=== PATIENT | male | born 1990 | race African-American/Black ===

== ENCOUNTER 2016-02-23 12:15 | Emergency (ER) | payer MEDICAID ==
--- NOTE | 2016-02-23 12:29 | ER Document Report ---
ED Medical Screen (RME) - General Stated Complaint: BODY PAIN Notes: Body pain for approximately 1 year. struck left knee yesterday. Ambulatory no limp steady gait. I greeted and performed a rapid initial assessment of this patient. Comprehensive ED assessment and evaluation of the patient, analysis of test results and completion of the medical decision making process will be conducted by additional ED providers.
[2016-02-23] MEDS ORDERED: KETOROLAC TROMETHAMINE 60 MG/2 ML SDV IM ONE (13:06)
--- NOTE | 2016-02-23 13:12 | ER Document Report ---
ED General Pain - General Chief Complaint: Pain All Over Stated Complaint: BODY PAIN Time seen by provider: 13:06 TRAVEL OUTSIDE OF THE [place] IN LAST 30 DAYS: No - HPI Patient complains to provider of: pain in knees Onset: Other - pt. states he fell on his knees 2 days ago and has had some pain in them since. He has been walking on them since this time. - Related Data Allergies/Adverse Reactions: No Known Allergies Allergy (Unverified 02/23/16 12:29) Past Medical History - General Information source: Patient - Social History Smoking Status: Never Smoker Cigarette use (# per day): No Chew tobacco use (# tins/day): No Smoking Education Provided: No Frequency of alcohol use: None Drug Abuse: None Family History: None Patient has suicidal ideation: No Patient has homicidal ideation: No Renal/ Medical History: Denies: Hx Peritoneal Dialysis Surgical Hx: Negative - Immunizations Hx Diphtheria, Pertussis, Tetanus Vaccination: Yes Review of Systems - Review of Systems Constitutional: No symptoms reported EENT: No symptoms reported Cardiovascular: No symptoms reported Respiratory: No symptoms reported Musculoskeletal: See HPI, Joint pain -: Yes All other systems reviewed and negative Physical Exam - Vital signs Vitals: Temp Pulse Resp BP Pulse Ox 98.1 F 73 16 131/76 H 100 02/23/16 12:30 02/23/16 12:30 02/23/16 12:30 02/23/16 12:30 02/23/16 12:30 - General General appearance: Appears well In distress: None - Respiratory Respiratory status: No respiratory distress Breath sounds: Normal - Cardiovascular Rhythm: Regular Heart sounds: Normal auscultation - Extremities Knee: Tender - there is minimal TTP of both knees diffusely without swelling or deformity. There is no valgus or varus laxity and neg. anterior or posterior drawer sign. N/V intact Course - Re-evaluation Re-evalutation: 02/23/16 13:10 I don't feel x-rays are indicated in this pt. today. He will be given anti- inflammatory meds and if he doesn't improve, we will consider imaging in the future. - Vital Signs Vital signs: Temp Pulse Resp BP Pulse Ox 98.1 F 73 16 131/76 H 100 02/23/16 12:30 02/23/16 12:30 02/23/16 12:30 02/23/16 12:30 02/23/16 12:30 Discharge - Discharge Clinical Impression: Knee pain, bilateral Qualifiers: Chronicity: acute Qualified Code(s): M25.561 - Pain in right knee; M25.562 - Pain in left knee Condition: Stable Disposition: HOME, SELF-CARE Additional Instructions: rest, take meds as prescribed, return if worse Prescriptions: Etodolac [Lodine] 400 mg PO BID #14 tablet Referrals: JB ANNE DO [ACTIVE STAFF] - Follow up as needed
[2016-02-23 14:13] VITALS: BP 124/68
== END 2016-02-23 14:11 | disposition home or self-care (01) ==
LOC: ER 12:15
DX: M25.562 Pain in left knee (principal); M25.561 Pain in right knee; M79.1 Myalgia; W19.XXXA Unspecified fall, initial encounter
CPT/HCPCS: 99283; 96372; J1885